=== PATIENT | female | born 1945 | race Hispanic/Latino ===

== ENCOUNTER 2017-10-24 16:47 | Inpatient (IN) | payer BC, MEDICARE ==
--- NOTE | 2017-10-24 18:56 | ED PDOC ---
Arrival/HPI - General Chief Complaint: Shortness Of Breath Time Seen by Provider: 10/24/17 18:47 Historian: Patient - History of Present Illness Narrative History of Present Illness (Text): 10/24/17 18:53 72 year old female, whose history includes COPD, lung cancer, brain cancer, and emphysema, presents to the Emergency department complaining of worsening shortness of breath for 4 days. Patient is not on oxygen at home. Patient denies any fever, chills, chest pain, nausea, vomiting, diarrhea, urinary symptoms, back pain, neck pain, headache, dizziness or any other complaints. Time/Duration: Other (4 days) Symptom Onset: Gradual Symptom Course: Worsening Context: Home Past Medical History - Provider Review Nursing Documentation Reviewed: Yes - Infectious Disease Hx of Infectious Diseases: None - Reproductive Menopause: Yes - Neurological Hx Paralysis: No - Hematological/Oncological Hx Blood Transfusions: No Hx Blood Transfusion Reaction: No - Musculoskeletal/Rheumatological Hx Musculoskeletal Disorders: No - Psychiatric Hx Emotional Abuse: No Hx Physical Abuse: No Hx Substance Use: No - Anesthesia Hx Anesthesia Reactions: No Hx Malignant Hyperthermia: No - Suicidal Assessment Feels Threatened In Home Enviroment: No Family/Social History - Physician Review Nursing Documentation Reviewed: Yes Family/Social History: Unknown Family HX Smoking Status: Unknown If Ever Smoked Hx Alcohol Use: (2 GLASSES OF WINE PER WEEK) Hx Substance Use: No Allergies/Home Meds Allergies/Adverse Reactions: Allergies No Known Allergies Allergy (Unverified 02/20/13 11:08) Home Medications: Home Meds Medication Instructions Recorded Confirmed No Known Home Med 10/24/17 10/24/17 Review of Systems - Physician Review All systems were reviewed & negative as marked: Yes - Review of Systems Constitutional: absent: Fevers, Night Sweats Respiratory: SOB. absent: Cough Cardiovascular: absent: Chest Pain Gastrointestinal: absent: Diarrhea, Nausea, Vomiting Genitourinary Female: absent: Dysuria Musculoskeletal: absent: Back Pain, Neck Pain Neurological: absent: Headache, Dizziness Physical Exam Vital Signs Reviewed: Yes Vital Signs Temp Pulse Resp BP Pulse Ox 10/24/17 19:00 115 H 24 135/88 98 10/24/17 17:16 97.9 F 112 H 20 148/74 97 10/24/17 16:47 97.9 F 112 H 26 H 148/78 97 Temperature: Febrile Blood Pressure: Normal Pulse: Regular Respiratory Rate: Normal Appearance: Positive for: Well-Appearing, Non-Toxic, Comfortable Pain Distress: None Mental Status: Positive for: Alert and Oriented X 3 - Systems Exam Head: Present: Atraumatic, Normocephalic Pupils: Present: PERRL Extroacular Muscles: Present: EOMI Conjunctiva: Present: Normal Mouth: Present: Moist Mucous Membranes Neck: Present: Normal Range of Motion Respiratory/Chest: Present: Wheezes (expiratory wheezing), Decreased Breath Sounds, Other (increased respiratory rate) Cardiovascular: Present: Regular Rate and Rhythm, Normal S1, S2. No: Murmurs Abdomen: Present: Normal Bowel Sounds. No: Tenderness, Distention, Peritoneal Signs Back: Present: Normal Inspection Upper Extremity: Present: Normal Inspection. No: Cyanosis, Edema Lower Extremity: Present: Normal Inspection. No: Edema Neurological: Present: GCS=15, CN II-XII Intact, Speech Normal Skin: Present: Warm, Dry, Normal Color. No: Rashes Psychiatric: Present: Alert, Oriented x 3, Normal Insight, Normal Concentration Medical Decision Making ED Course and Treatment: 10/24/17 18:45 Impression: 72 year old female presents to the Emergency department complaining of dyspnea. Differential Diagnosis included but are not limited to: emphysema Plan: -- Albuterol, Prednisone -- O2 via nasal cannula -- IV fluids -- Reassess and disposition Progress Notes: 10/24/17 19:59 Patient reevaluated. Diminished wheezes, good air movement though lungs, and clinically feels better. Chest xray still pending. 10/24/17 21:03 Patient reevaluated. Lungs sound better, however, patient still feels short of breath. Will have patient ambulate around the Emergency department and offer supplemental oxygen. if patient seems acutely exacerbated again, will admit. - Lab Interpretations Lab Results: 10/24/17 19:00 10/24/17 19:00 Lab Results 10/24/17 19:00: Sodium 147, Potassium 4.0, Chloride 107, Carbon Dioxide 30, Anion Gap 14, BUN 15, Creatinine 0.6 L, Est GFR ( Amer) > 60, Est GFR ( Non-Af Amer) > 60, Random Glucose 90, Calcium 9.8, Total Bilirubin 0.4, AST 30, ALT 30, Alkaline Phosphatase 70, Troponin I < 0.01, Total Protein 6.9, Albumin 3.8, Globulin 3.1, Albumin/Globulin Ratio 1.2 10/24/17 19:00: WBC 11.0, RBC 4.30, Hgb 13.0, Hct 39.7, MCV 92.3, MCH 30.2, MCHC 32.7, RDW 14.3, Plt Count 219, MPV 11.1 H, Gran % 68.4 H, Lymph % (Auto) 21.1 L, Centre % (Auto) 9.0 H, Eos % (Auto) 1.2 L, Baso % (Auto) 0.3, Gran # 7.50 H, Lymph # 2.3, Centre # 1.0 H, Eos # 0.1, Baso # 0.03 - RAD Interpretation Narrative RAD Interpretations (Text): 10/24/17 20:59 Chest xray reviewed. Shows loculated pleural effusion with some volume loss. No old for comparison. Radiology Orders: 10/24/17 20:00 CHEST PORTABLE [RAD] Stat Senior Credit Officer: ED Physician - EKG Interpretation EKG Interpretation (Text): 10/24/17 17:18 EKG: Ordered, reviewed, and independently interpreted the EKG. Rate : 105 BPM Rhythm : Sinus tachycardia Interpretation : No ST-segment elevations or depressions, no T-wave inversions, normal intervals, no ectopy. Otherwise normal cardiogram. Interpreted by ED Physician: Yes Type: 12 lead EKG - Medication Orders Current Medication Orders: Discontinued Medications Albuterol Sulfate (Albuterol 0.5% Inhal Yari (2.5 Mg/0.5 Ml) Ud) 10 mg IH STAT STA Stop: 10/24/17 18:50 Last Admin: 10/24/17 19:44 Dose: 10 mg Albuterol Sulfate (Albuterol 0.5% Inhal Yari (2.5 Mg/0.5 Ml) Ud) 10 mg IH STAT STA Stop: 10/24/17 19:27 Last Admin: 10/24/17 19:33 Dose: 10 mg Methylprednisolone (Solu-Medrol) 125 mg IVP STAT STA Stop: 10/24/17 18:52 Last Admin: 10/24/17 19:00 Dose: 125 mg IVP Administration Document 10/24/17 19:00 SRE (Rec: 10/24/17 19:17 SRE [id number]) Charges for Administration # of IVP Administrations 1 - Scribe Statement The provider has reviewed the documentation as recorded by the Scribe John James All medical record entries made by the Scribe were at my direction and personally dictated by me. I have reviewed the chart and agree that the record accurately reflects my personal performance of the history, physical exam, medical decision making, and the department course for this patient. I have also personally directed, reviewed, and agree with the discharge instructions and disposition. Disposition/Present on Arrival - Present on Arrival Any Indicators Present on Arrival: No History of DVT/PE: No History of Uncontrolled Diabetes: No Urinary Catheter: No History of Decub. Ulcer: No History Surgical Site Infection Following: None - Disposition Have Diagnosis and Disposition been Completed?: Yes Diagnosis: COPD (chronic obstructive pulmonary disease) Disposition: HOSPITALIZED Disposition Time: 21:32 Patient Plan: Admission Condition: FAIR Referrals: Alexandrea HARRIS,Navin Modi MD [Primary Care Provider] - Follow up with primary Forms: [employer] (Korean)
[2017-10-24] MEDS: Albuterol 0.5% Inhal Sol (2.5 mg/0.5 ml) UD IH STA ×2 (19:15→19:44)
[2017-10-24] MEDS ORDERED: Albuterol 0.083% Inhal Sol (2.5 mg/3 mL) UD ONE (19:18)
[2017-10-24] MEDS ORDERED: Albuterol 0.5% Inhal Sol (2.5 mg/0.5 ml) UD IH STA (19:26)
[2017-10-24 19:52] LABS: BASO # 0.03 K/mm3 (0.0-2.0); BASO % 0.3 % (0.0-3.0); EOS # 0.1 (0.0-0.7); EOS % 1.2 % (1.5-5.0); GRAN # 7.5 (1.4-6.5); GRAN % 68.4 % (50.0-68.0); LYMPH # 2.3 (1.2-3.4); LYMPH % 21.1 % (22.0-35.0); MEAN CELL VOLUME 92.3 fl (80.0-105.0); MEAN CORPUSCULAR HEMOGLOBIN 30.2 pg (25.0-35.0); MEAN CORPUSCULAR HGB CONC 32.7 g/dl (31.0-37.0); MEAN PLATELET VOLUME 11.1 fl (7.0-11.0); RBC 4.3 10^6/uL (3.5-6.1); RED CELL DISTRIBUTION WIDTH 14.3 % (11.5-14.5)
[2017-10-24 19:59] LABS: ALB/GLOB RATIO 1.2 (1.1-1.8); ALBUMIN 3.8 g/dL (3.0-4.8); ALT/SGPT 30 U/L (7-56); AST/SGOT 30 U/L (14-36); BLOOD UREA NITROGEN 15 mg/dL (7-21); CALCIUM 9.8 mg/dL (8.4-10.5); GFR AFRICAN-AMERICAN > 60; GFR NON-AFRICAN AMERICAN > 60
[2017-10-24 20:11] LABS: TROPONIN I < 0.01 ng/mL
[2017-10-24 21:45] LABS: URINE BILIRUBIN NEGATIVE (NEGATIVE); URINE BLOOD SMALL (NEGATIVE); URINE GLUCOSE (UA) NEGATIVE (NEGATIVE); URINE LEUKOCYTE ESTERASE TRACE Leu/uL (NEGATIVE); URINE NITRATE NEGATIVE (NEGATIVE); URINE PROTEIN TRACE mg/dL (<30 mg/dL); URINE UROBILINOGEN 0.2 E.U./dL (<1 E.U./dL)
[2017-10-24 22:01] LABS: URINE APPEARANCE SL CLOUDY (CLEAR); URINE COLOR YELLOW (YELLOW)
[2017-10-24 22:03] LABS: URINE BACTERIA FEW (NEG); URINE CALCIUM OXALATE CRYSTALS FEW /hpf; URINE EPITHELIAL CELLS 0 - 2 /hpf (0-5)
[2017-10-24] MEDS ORDERED: Albuterol-Ipratrop 3 mg / 0.5 (3 ml) UD IH PRN (22:18)
--- NOTE | 2017-10-25 07:23 | RAD ---
HISTORY: Sepsis Patient COMPARISON: No prior. FINDINGS: LUNGS: Postop changes in the right hilum with volume loss of the left chest appreciated increased fibrosis in the mid to inferior left lung zone with tenting of the left hemidiaphragm seen secondarily. No acute infiltrate or pleural effusion bilaterally. No pneumothorax. CARDIOVASCULAR: Normal. OSSEOUS STRUCTURES: No significant abnormalities. VISUALIZED UPPER ABDOMEN: Normal. OTHER FINDINGS: None. IMPRESSION: No acute cardiopulmonary disease appreciated. Fibrosis of the mid to inferior left lung zone is appreciate as well as volume loss. Postop changes seen the right hilar region. Fibrotic pattern at left chest has increased compared prior chest CT 02/25/2013.
[2017-10-25] MEDS: Albuterol-Ipratrop 3 mg / 0.5 (3 ml) UD IH SCH ×4 (08:17→20:08)
[2017-10-25] MEDS: Budesonide 0.5 mg/2 ml Inhal Susp UD IH SCH ×2 (08:17→20:07)
[2017-10-25] MEDS: Fluticasone Nasal 50 mcg/Spray NS SCH (10:36)
[2017-10-25] MEDS: MethylPREDNISolone 40 mg Vial IVP SCH ×2 (10:36→21:13)
--- NOTE | 2017-10-25 12:18 | CON ---
DATE: 10/25/2017 PULMONARY CONSULTATION NOTE REFERRING PHYSICIAN: Navin Lechuga MD REASON FOR CONSULTATION: Chronic obstructive pulmonary disease. HISTORY OF PRESENT ILLNESS: The patient is a 72-year-old female, with past medical history significant for advanced chronic obstructive pulmonary disease, positive extensive smoking history, history of lung cancer with recurrence, history of brain metastasis (status post multiple surgeries), who presents to [facility] with increasing shortness of breath at rest, dyspnea on exertion, cough, and minimal sputum production for the past 4 days. There is no history of chest pain, coughing up of blood, or chest pain - made worse with deep respirations. There is no history of temperatures, chills or infectious exposure. There is no history of night sweats, weight loss or appetite change prior to the above events. No history of leg or calf pains. No history of syncope or diaphoresis. No history of recent travel or trauma. REVIEW OF SYSTEMS: The patient does state to a runny nose and nasal congestion over the past 4 days. No nausea, vomiting or diarrhea. No acute urinary symptoms. No new neurologic or musculoskeletal complaints. Rest of the review of systems is negative. ALLERGIES: NO KNOWN ALLERGIES. SOCIAL HISTORY: Positive for extensive tobacco usage. No alcohol. FAMILY HISTORY: No inheritable diseases. HOME MEDICATIONS: Not listed in the current chart. PHYSICAL EXAMINATION GENERAL: The patient appears comfortable this morning. She is not short of breath at rest. VITAL SIGNS: Temperature is 97.7, pulse 99, respirations 18, blood pressure 140/84. Oxygen saturation on nasal cannula is 98%. HEENT: Normocephalic, atraumatic. No JVD. CARDIOVASCULAR: Positive S1, S2. No S3 gallop. LUNGS: Decreased breath sounds at the bases. Minimal rhonchi. Minimal wheezing. EXTREMITIES: No clubbing, cyanosis or edema. Calves are nontender to palpation. GI: Abdomen is soft, nontender and nondistended. Bowel sounds are positive. SKIN: No acute rash. NEUROLOGIC: Limited at the present time. PERTINENT LABORATORY DATA: Chest x-ray was done yesterday and reviewed. There appears to be chronic fibrotic changes noted with bilateral scarring ( linear). Unfortunately, there are no old films for comparison. Official results are pending. CBC: White count 11.0, hemoglobin 13.0, hematocrit 39.7, platelets of 219,000. Complete metabolic profile: Creatinine 0.6. Rest of the metabolic profiles within normal limits. IMPRESSION: 1. Acute bronchitis. 2. Advanced chronic obstructive pulmonary disease. 3. Acute sinusitis. 4. History of lung cancer, status post resective surgery. 5. History of lung cancer recurrence with brain metastasis. PLAN: The patient presents to [facility] with a 4-day history of worsening pulmonary symptoms. The patient also relates the history of nasal congestion and runny nose for the past 4 days. I did review the chest x-ray as above. There are chronic fibrotic changes, as well as scarring, bilaterally. Again, there are no old films for comparison. I did discuss the patient's history with her at length this morning. She is followed closely by a private Otr Owner Operator in [place] (Dr. Martins). She does state that she has had recent CAT scan and recent biopsy (benign). On physical exam, the patient is in mild bronchospasm. I will continue the current nebulizer treatments and try decreasing the intravenous steroids this morning. I will also add inhaled steroids, as well as nasal steroids this morning. There are no temperatures noted. There is no leukocytosis. However, given her above history, I do agree with antibiotic coverage for now. The patient does state to feeling much better and is clinically improved this morning. Additional pulmonary intervention will be based on the clinical status of the patient. I will discuss the above with Dr. Lechuga the next few moments. Thank you very much for this pulmonary consultation. Eben Chauhdry MD MTDFlako
--- NOTE | 2017-10-25 12:43 | HP ---
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 The patient has a history of chronic bronchitis and recurrent COPD exacerbations which are often treated successfully on an outpatient basis. Prior to this admission, the patient reported the usual onset of symptoms consisting of dyspnea with exertion, chest tightness and cough intermittently productive of green sputum. Over the course of the following 36 hours, her symptoms progressed to dyspnea at rest. She presented to her PMD for evaluation and was noted to utilize accessory muscles of respiration with tripoding and had marked conversational dyspnea. She was advised to present to the ED for continued management and admission for COPD exacerbation. Several hours later she presented to [facility] ED. She was noted to be afebrile and hemodynamically stable, albeit slightly tachycardic with a pulse in the 110s. She received multiple nebulizer treatments and Solu Medrol 125 mg IV x1 with moderate improvement in her symptoms at rest. Upon ambulation, however, she became markedly hypoxic with an O2 saturation in the 80s and as such was advised that she will likely need to be admitted for continued management of COPD exacerbation. PAST MEDICAL HISTORY: As per HPI, also GERD and hyperlipidemia. PAST SURGICAL HISTORY: As per HPI. ALLERGIES: NO KNOWN DRUG ALLERGIES. MEDICATIONS: Spiriva 18 mcg inhaled daily, Advair 250/50 mcg 1 puff b.i.d., Ventolin HFA 2 puffs q.4 to 6 hours p.r.n. dyspnea or wheeze. FAMILY HISTORY: Noncontributory. SOCIAL HISTORY: The patient has a former 50 pack-year smoking history but quit in 2001. The patient reports social alcohol use and denies illicit drug abuse. REVIEW OF SYSTEMS: A 14-point review of systems is negative except as per HPI. PHYSICAL EXAMINATION: VITAL SIGNS: Temperature 97.7, pulse 99, blood pressure 140/84, respiratory rate 20, oxygen saturation 97% on 2 liters nasal cannula. GENERAL: No apparent distress. HEENT: PERRL. EOMI. No scleral icterus. No conjunctival pallor. NECK: No JVD. No bruits. LUNGS: Diffuse wheeze with few scattered rhonchi. CARDIOVASCULAR: Tachycardic. Normal S1 and S2. ABDOMEN: Normoactive bowel sounds. Soft, nontender, and nondistended. EXTREMITIES: No edema. NEUROLOGIC: Awake, alert, and oriented x3. No focal motor deficits. LABORATORY DATA: CBC reviewed and unremarkable. CMP reviewed and unremarkable. IMAGING STUDIES: Chest x-ray demonstrates no acute cardiopulmonary disease however fibrosis is noted to the mid and inferior left lung zone with volume loss. ASSESSMENT: The patient is a 72 year old woman with a past medical history of severe COPD and metastatic lung cancer s/p lobectomy who completed a course of chemotherapy and radiation therapy who presented from her PMD's office for management of exacerbation of severe COPD. PLAN: 1. Severe COPD with acute exacerbation: Input from Dr. Chaudhry noted. Steroids have been tapered to Solu-Medrol 40 mg IV q.12 hours. Continue with DuoNebs and Pulmicort. Continue Doxycycline 100 mg p.o. q.12 hours. Continue supplemental oxygen as needed. Encourage ambulation in the patient. 2. History of Stage IV NSCLC and large cell carcinoma of the lung: The patient to resume followup with Dr. Hendrickson upon discharge. 3. GERD: We will start Protonix 40 mg p.o. daily. 4. 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 5. Prophylaxis: GI prophylaxis is not indicated as the patient is eating. DVT prophylaxis is not indicated as the patient is ambulatory. CODE STATUS: Full code. Navin Lechuga MD MTDFlako
--- NOTE | 2017-10-25 15:11 | CARD ---
APPROVED REPORT EKG Measurement Heart [id number] <Conclusion> Sinus tachycardia Otherwise normal ECG
[2017-10-26] MEDS: Albuterol-Ipratrop 3 mg / 0.5 (3 ml) UD IH SCH ×8 (00:45→22:13)
[2017-10-26] MEDS: Pantoprazole 40 mg EC Tab PO SCH (05:24)
[2017-10-26 06:36] LABS: GRAN % 92.4 % (50.0-68.0); HEMOGLOBIN 12.7 g/dL (12.0-16.0); LYMPH % 5.5 % (22.0-35.0); MEAN CORPUSCULAR HEMOGLOBIN 29.9 pg (25.0-35.0); MEAN CORPUSCULAR HGB CONC 32.5 g/dl (31.0-37.0); MEAN PLATELET VOLUME 11.4 fl (7.0-11.0); MONO # 0.4 (0.1-0.6); MONO % 2.1 % (1.0-6.0); PLATELET COUNT 260 10^3/uL (120.0-450.0); RBC 4.25 10^6/uL (3.5-6.1); RED CELL DISTRIBUTION WIDTH 14.7 % (11.5-14.5); WHITE BLOOD COUNT 18.3 10^3/ul (4.5-11.0)
[2017-10-26] MEDS: Budesonide 0.5 mg/2 ml Inhal Susp UD IH SCH ×2 (07:24→20:17)
[2017-10-26 07:29] LABS: ALB/GLOB RATIO 1.2 (1.1-1.8); ALBUMIN 4.1 g/dL (3.0-4.8); ALT/SGPT 27 U/L (7-56); AST/SGOT 34 U/L (14-36); BLOOD UREA NITROGEN 18 mg/dL (7-21); CALCIUM 10.5 mg/dL (8.4-10.5); GFR AFRICAN-AMERICAN > 60; GFR NON-AFRICAN AMERICAN > 60
--- NOTE | 2017-10-26 07:43 | PN ---
DATE: 10/26/2017 PULMONARY NOTE SUBJECTIVE: The patient appears very comfortable this morning. She is not short of breath at rest. PHYSICAL EXAMINATION: VITAL SIGNS: Temperature is 97.9, pulse this morning is approximately 80, respiratory rate 18, last blood pressure recorded 131/74. Oxygen saturation on nasal cannula is 95%. HEENT: Normocephalic, atraumatic. No JVD. CARDIOVASCULAR: Positive S1, S2. No S3 gallop. LUNGS: Clear bilaterally this morning. EXTREMITIES: No clubbing, cyanosis or edema. Calves are nontender to palpation. GI: Abdomen is soft, nontender and nondistended. Bowel sounds are positive. SKIN: No acute rash. NEUROLOGIC: Limited at the present time. IMPRESSION: 1. Acute bronchitis. 2. Advanced chronic obstructive pulmonary disease. 3. Acute sinusitis. 4. History of lung cancer, status post resective surgery. 5. History of lung cancer recurrence with brain metastasis. PLAN: The patient appears very comfortable this morning. She is not short of breath at rest. She is less dyspneic on exertion. She does state to feeling much better overall. On physical exam, her lungs are now clear. Oxygen saturation on nasal cannula is 95%. I will continue the current nebulizer treatments and decrease the intravenous steroids this morning. The patient is also on nasal steroids and oral doxycycline. I did discuss the case with the night nurse at length. I have requested room air pulse oximetry with the patient sitting and exercising. At this point in time, the patient is significantly improved. She is for probable discharge in the near future. She is well aware that she will need to follow up with her private Pigment Pusher closely. I will discuss the above with Dr. Lechuga. Eben Chaudhry MD MTDD
[2017-10-26 08:27] LABS: LARGE PLATELETS PRESENT; LYMPHOCYTE 4 % (22.0-35.0); MONOCYTE 2 % (1.0-6.0); NEUTROPHIL 94 % (50.0-70.0); PLATELET ESTIMATE NORMAL (NORMAL)
--- NOTE | 2017-10-26 09:19 | PN ---
SUBJECTIVE: The patient was seen and examined at bedside on the remote telemetry [place]. No acute events overnight. She remains afebrile and hemodynamically stable. The patient reports significant improvement in her respiratory status and states she is able to ambulate further than on admission however continues to endorse some dyspnea with exertion. Otherwise she offers no complaints. OBJECTIVE: VITAL SIGNS: Temperature 97.6, pulse 108, blood pressure 119/79, respiratory rate 20 and oxygen saturation 94% on 2L NC. GENERAL: No apparent distress. HEENT: PERRL. EOMI. No scleral icterus. No conjunctival pallor. NECK: No JVD. No bruits. LUNGS: Scattered wheeze with few rhonchi. CARDIOVASCULAR: Tachycardic. Normal S1 and S2. ABDOMEN: Normoactive bowel sounds. Soft, nontender, and nondistended. EXTREMITIES: No edema. NEUROLOGIC: Awake, alert, and oriented x3. No focal motor deficits. LABORATORY DATA: WBC 18.3 with 92% neutrophils, hemoglobin 13, hematocrit 39, and platelets 260. Chemistry reviewed and unremarkable. ASSESSMENT: The patient is a 72 year old woman with severe COPD and metastatic lung cancer s/p lobectomy who completed a course of chemotherapy and radiation therapy who presented from PMD's office for management of exacerbation of severe COPD. PLAN: 1. Severe COPD with acute exacerbation. Input from Dr. Chaudhry noted and appreciated. Continue Solu-Medrol taper to Solu-Medrol 30 mg IV q.12 hours. Continue supplemental oxygen and bronchodilators as needed. Continue doxycycline 100 mg p.o. q.12 hours. 2. History of Stage IV non-small cell lung cancer and large cell carcinoma of the lung: The patient will resume followup with Dr. Martins upon discharge. 3. GERD: Continue Protonix 40 mg p.o. daily. 4. 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 5. Prophylaxis: GI prophylaxis is not indicated as the patient is eating. DVT prophylaxis is not indicated as the patient is ambulatory. 6. Disposition: The patient will likely be discharged tomorrow (10/27/2017). CODE STATUS: FULL CODE. Navin Lechuga MD [facility] # [id number] TYE
[2017-10-26] MEDS: MethylPREDNISolone 40 mg Vial IVP SCH ×2 (09:33→21:19)
[2017-10-26] MEDS: Fluticasone Nasal 50 mcg/Spray NS SCH (09:56)
[2017-10-27] MEDS: Albuterol-Ipratrop 3 mg / 0.5 (3 ml) UD IH SCH ×4 (00:13→12:09)
[2017-10-27] MEDS: Pantoprazole 40 mg EC Tab PO SCH (05:32)
[2017-10-27 06:20] LABS: GRAN # 16.06 (1.4-6.5); GRAN % 91.7 % (50.0-68.0); HEMOGLOBIN 12.9 g/dL (12.0-16.0); LYMPH % 5.8 % (22.0-35.0); MEAN CELL VOLUME 92.7 fl (80.0-105.0); MEAN CORPUSCULAR HEMOGLOBIN 29.5 pg (25.0-35.0); MEAN CORPUSCULAR HGB CONC 31.9 g/dl (31.0-37.0); MEAN PLATELET VOLUME 11.4 fl (7.0-11.0); MONO # 0.4 (0.1-0.6); MONO % 2.5 % (1.0-6.0); RBC 4.37 10^6/uL (3.5-6.1); RED CELL DISTRIBUTION WIDTH 14.8 % (11.5-14.5); WHITE BLOOD COUNT 17.5 10^3/ul (4.5-11.0)
[2017-10-27 06:39] LABS: ALB/GLOB RATIO 1.1 (1.1-1.8); ALBUMIN 3.9 g/dL (3.0-4.8); ALT/SGPT 28 U/L (7-56); AST/SGOT 28 U/L (14-36); BLOOD UREA NITROGEN 23 mg/dL (7-21); CALCIUM 10.4 mg/dL (8.4-10.5); GFR AFRICAN-AMERICAN > 60; GFR NON-AFRICAN AMERICAN > 60
[2017-10-27] MEDS: Budesonide 0.5 mg/2 ml Inhal Susp UD IH SCH (07:42)
--- NOTE | 2017-10-27 08:22 | PN ---
DATE: 10/27/2017 PULMONARY PROGRESS NOTE SUBJECTIVE: The patient appears very comfortable this morning. She is not short of breath at rest. PHYSICAL EXAMINATION: VITAL SIGNS: Temperature is 98.3, pulse this morning is 84, respiratory rate is 18, and blood pressure is 115/74. Oxygen saturation on room air this morning - 96% (discussed with nurse). HEENT: Normocephalic and atraumatic. No JVD. CARDIOVASCULAR: Positive S1 and S2. No S3 gallop. LUNGS: Clear bilaterally. EXTREMITIES: No clubbing, cyanosis or edema. EXTREMITIES: Calves are nontender to palpation. GASTROINTESTINAL: Abdomen is soft, nontender and nondistended. Bowel sounds are positive. SKIN: No acute rash. NEUROLOGIC: Exam is limited at the present time. IMPRESSION 1. Acute bronchitis. 2. Advanced chronic obstructive pulmonary disease. 3. Acute sinusitis. 4. History of lung cancer, status post resective surgery. 5. History of lung cancer recurrence with brain metastasis. PLAN: The patient appears very comfortable this morning. She is not short of breath at rest. She is much less dyspneic on exertion. She does state to feeling much much better overall. On physical exam, her lungs remain clear. Oxygen saturation measured on room air this morning - 96% (discussed with nurse and aide). I will continue the current nebulizer treatments and change to oral steroids this morning. I will also continue with the oral antibiotics and nasal steroids. Clinical status of the patient is significantly improved compared to the initial presentation. The patient is for discharge in the near future. 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 I will discuss the above with Dr. Lechuga. Eben Chaudhry MD TYE
[2017-10-27 08:47] VITALS: BP 126/79; PULSE 107; RESP 20; TEMP 97.8; O2SAT 96
[2017-10-27] MEDS: Fluticasone Nasal 50 mcg/Spray NS SCH (09:22)
[2017-10-27] MEDS ORDERED: Pneumococcal 23-Valent Vaccine IM ONE (10:00)
--- NOTE | 2017-10-27 10:12 | PN ---
SUBJECTIVE: The patient is seen and examined at the bedside on the remote telemetry de [place]. No acute events overnight. She remains afebrile, hemodynamically stable and with continued improvement in her clinical status. This morning she reports significant improvement in her bronchospasm and reports easier work of breathing and otherwise offers no complaints. OBJECTIVE: VITAL SIGNS: Temperature 97.8, pulse 107, blood pressure 126/79, respiratory rate 20, and oxygen saturation 96% on 2 liters nasal cannula. GENERAL: No apparent distress. HEENT: PERRL. EOMI. No scleral icterus. No conjunctival pallor. NECK: No JVD. No bruits. LUNGS: Few scattered wheeze with minimal rhonchi. CARDIOVASCULAR: Tachycardic. Normal S1 and S2. ABDOMEN: Normoactive bowel sounds. Soft, nontender, and nondistended. EXTREMITIES: No edema. NEUROLOGIC: Awake, alert, and oriented x3. No focal motor deficits. LABORATORY DATA: WBC 17.5 with 92% neutrophils, hemoglobin 13, hematocrit 40, and platelets 250. Chemistry reviewed and unremarkable. ASSESSMENT: The patient is a 72 year old woman with severe COPD and history of metastatic lung cancer s/p lobectomy s/p completed course of chemotherapy and radiation therapy who presented from her PMD's office for management of exacerbation of severe COPD. PLAN: 1. Severe COPD with acute exacerbation. Input from Dr. Chaudhry noted and greatly appreciated. Continue steroids to taper, supplemental oxygen and bronchodilators as needed. Continue Doxycycline 100 mg p.o. q.12 hours to complete a 7 day course. 2. History of Stage IV nonsmall cell lung cancer and large cell carcinoma of the lung. The patient will resume followup with Dr. Hendrickson upon discharge. 3. GERD. Continue Protonix 40 mg p.o. daily. 4. Hyperlipidemia. 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 5. Prophylaxis: GI prophylaxis is not indicated as the patient is eating. DVT prophylaxis is not indicated as the patient is ambulatory. 6. Disposition: The patient will discharged home today. CODE STATUS: Full code. Navin Lechuga MD [facility] # [id number]
== END 2017-10-27 15:07 | disposition home or self-care (01) | DRG 191 ==
LOC: ED 16:47 → ERH 21:28 → 3RNO 10-25 01:50
PROVIDERS: ADMIT Student in an Organized Health Care Education/Training Program; ATTEND Student in an Organized Health Care Education/Training Program
DX: J44.1 Chronic obstructive pulmonary disease with (acute) exacerbation (principal); C79.31 Secondary malignant neoplasm of brain; J20.9 Acute bronchitis, unspecified; J44.0 Chronic obstructive pulmonary disease with (acute) lower respiratory infection; J01.90 Acute sinusitis, unspecified; E78.5 Hyperlipidemia, unspecified; K21.9 Gastro-esophageal reflux disease without esophagitis; Z85.118 Personal history of other malignant neoplasm of bronchus and lung; Z92.21 Personal history of antineoplastic chemotherapy; Z92.3 Personal history of irradiation; Z90.2 Acquired absence of lung [part of]; Z87.891 Personal history of nicotine dependence

== ENCOUNTER 2018-11-05 13:07 | Outpatient (CLI) | payer MEDICARE | END 2018-11-05 13:08 | disposition home or self-care (01) | LOC: RAD 13:07 ==

== ENCOUNTER 2019-02-11 11:06 | Outpatient (CLI) | payer MEDICARE | END 2019-02-11 11:07 | disposition home or self-care (01) | LOC: RAD 11:06 ==